=== PATIENT | female | born 1990 | race Caucasian/White ===

== ENCOUNTER → 2017-11-28 | Outpatient (CLI) | payer BC ==
[2017-11-28 14:24] LABS: BASO % 0.5 % (0.0-1.0); EOS # 0.2 10^3/uL (0.0-0.50); HEMATOCRIT 39.6 % (36.0-47.0); HEMOGLOBIN 13.6 g/dl (12.0-15.5); IMMATURE GRANULOCYTE % 0.4 % (0-3.0); LYMPH # 2.4 10^3/uL (1.5-6.5); LYMPH % 32.7 % (24.0-44.0); MEAN CORPUSCULAR HEMOGLOBIN 30.8 pg (27.0-33.0); MEAN CORPUSCULAR HGB CONC 34.3 g/dl (32.0-36.5); MEAN CORPUSCULAR VOLUME 89.6 fl (80.0-96.0); MONO # 0.5 10^3/uL (0.0-0.8); MONO % 6.1 % (0.0-5.0); NEUTROPHILS # 4.3 10^3/uL (1.8-7.7); NEUTROPHILS % 58.3 % (36.0-66.0); PLATELET COUNT, AUTOMATED 284 10^3/uL (150-450); RED BLOOD COUNT 4.42 10^6/uL (4.00-5.40); RED CELL DISTRIBUTION WIDTH 12.3 % (11.5-14.5); WHITE BLOOD COUNT 7.3 10^3/uL (4.0-10.0)
[2017-11-28 16:17] LABS: CHLAMYDIA DNA AMPLIFICATION NEGATIVE (NEGATIVE); GC DNA AMPLIFICATION NEGATIVE (NEGATIVE)
[2017-11-29 10:33] LABS: RUBELLA IgG QUALITATIVE IMMUNE (IMMUNE)
[2017-11-29 10:44] LABS: HBsAg Prenatal NEGATIVE (NEGATIVE)
[2017-11-29 11:04] LABS: HEPATITIS C VIRUS ABY INDEX 0.1 INDEX (<0.8)
[2017-11-29 11:05] LABS: HIV 1&2 SCREEN CENTAUR NEGATIVE (NEGATIVE)
== END ==
LOC: M SMT 08:52
DX: Z34.81 Encounter for supervision of other normal pregnancy, first trimester (principal); Z3A.09 9 weeks gestation of pregnancy
CPT/HCPCS: 86762

== ENCOUNTER → 2018-01-31 | Outpatient (CLI) | payer BC | LOC: M RAD 06:59 | DX: Z36.9 Encounter for antenatal screening, unspecified (principal); Z3A.18 18 weeks gestation of pregnancy | CPT/HCPCS: 76811 ==

== ENCOUNTER → 2018-02-27 | Outpatient (CLI) | payer BC | LOC: M RAD 07:00 | DX: Z34.82 Encounter for supervision of other normal pregnancy, second trimester (principal); Z36.89 Encounter for other specified antenatal screening; Z3A.21 21 weeks gestation of pregnancy | CPT/HCPCS: 76816 ==

== ENCOUNTER → 2018-03-25 | Outpatient (CLI) | payer BC | LOC: M RAD 06:27 | DX: Z36.89 Encounter for other specified antenatal screening (principal); Z3A.26 26 weeks gestation of pregnancy | CPT/HCPCS: 76816 ==

== ENCOUNTER → 2018-04-01 | Outpatient (CLI) | payer BC ==
[2018-04-01 17:48] LABS: BASO % 0.3 % (0.0-1.0); EOS # 0.1 10^3/uL (0.0-0.50); EOS % 1.6 % (0.0-3.0); HEMATOCRIT 34.7 % (36.0-47.0); HEMOGLOBIN 11.7 g/dl (12.0-15.5); IMMATURE GRANULOCYTE % 1.1 % (0-3.0); LYMPH # 2.2 10^3/uL (1.5-6.5); LYMPH % 24.8 % (24.0-44.0); MEAN CORPUSCULAR HEMOGLOBIN 30.2 pg (27.0-33.0); MEAN CORPUSCULAR HGB CONC 33.7 g/dl (32.0-36.5); MEAN CORPUSCULAR VOLUME 89.7 fl (80.0-96.0); MONO # 0.7 10^3/uL (0.0-0.8); MONO % 7.4 % (0.0-5.0); NEUTROPHILS # 5.7 10^3/uL (1.8-7.7); NEUTROPHILS % 64.8 % (36.0-66.0); PLATELET COUNT, AUTOMATED 265 10^3/uL (150-450); RED BLOOD COUNT 3.87 10^6/uL (4.00-5.40); RED CELL DISTRIBUTION WIDTH 12.9 % (11.5-14.5); WHITE BLOOD COUNT 8.8 10^3/uL (4.0-10.0)
[2018-04-01 22:07] LABS: GLUCOSE CHALLENGE TEST 1 HOUR 91 MG/DL (LESS THAN 140)
== END ==
LOC: M SMT 13:44
DX: Z34.82 Encounter for supervision of other normal pregnancy, second trimester (principal)
CPT/HCPCS: 82950

== ENCOUNTER → 2018-05-30 | Outpatient (CLI) | payer BC ==
--- NOTE | 2018-05-30 08:31 | REP ---
Obstetric sonography: History: Size date discrepancy. Third trimester study. Findings: Scanning through the gravid uterus demonstrates a viable single intrauterine gestation in a cephalic lie. motion is observed and heart rate is recorded at 141 beats per minute. An anterior grade 2 placenta is seen without evidence of previa. Amniotic fluid is subjectively normal. Closed cervical length measured transabdominally is 3.8 cm. No extrauterine abnormalities observed. There has been appropriate interval growth. Exam quality was inhibited some degree by crowding and maternal body habitus. No anomaly is seen. cranium, face and profile, left-sided stomach, kidneys and bladder are again seen and are felt to be unremarkable. Biometry chart: BPD 9.3 cm = 37 weeks 4 days Head circumference 33.1 cm = 37 weeks 5 days Abdominal circumference 33.9 cm = 37 weeks 6 days Femur length 7.0 cm = 35 weeks 5 days Humeral length 6.3 cm = 36 weeks 5 days HC/AC ratio normal at 1.0. Cephalic index normal 0.79. Estimated weight 3162 grams, 6 pounds 15 ounces, 93rd percentile for 34 weeks 6 days. IESHA normal 19.3 cm. S/D ratio in the umbilical cord artery by Doppler normal 2.31. Impression: Viable single intrauterine gestation at 37 weeks 1 day by today's composite sonographic criteria. Expected gestational age estimate based on prior sonography is 35 weeks 0 days. LIZETH by prior sonography July 04, 2018. Estimated weight in the 93rd percentile. Electronically Signed by Sourav Mares MD 05/30/2018 10:16 A
== END ==
LOC: M RAD 06:13
PROVIDERS: ATTEND Advanced Practice Midwife
DX: O26.843 Uterine size-date discrepancy, third trimester (principal)

== ENCOUNTER → 2018-06-06 | Outpatient (REF) | payer BC | LOC: M LAB REF 16:52 | PROVIDERS: ATTEND Specialist | DX: Z34.83 Encounter for supervision of other normal pregnancy, third trimester (principal); Z3A.36 36 weeks gestation of pregnancy ==

== ENCOUNTER 2018-07-05 06:18 | Inpatient (IN) | payer BC ==
[~2018-07-05] VITALS: Ht 162.6 cm; Wt 104.2 kg
[2018-07-05] VITALS (32 sets, daily range): BP systolic 86–128; BP diastolic 51–83
[2018-07-05] MEDS ORDERED: PRENCHW PO (06:35)
[2018-07-05] MEDS ORDERED: LACTATED RINGER'S 1000 ML IV STA (07:30)
--- NOTE | 2018-07-05 07:46 | HPEPDOC ---
Obstetrical History & Physical General Date of Admission Jul 05, 2018 at 06:18 History of Present Illness Chief Complaint: Induction of labor Information Provided By: Patient : 1 Care Care: Good Care Dating Final EDC: Jul 01, 2018 EGA at Admission: 40 (+4) Antepartum Course Height (inches): 64 Pre- weight (lbs.): 192 Admission Weight (lbs.): 230 Past Medical History Past Obstetrical History : Past Obstetrical History: [employer] History: No pertinent history Past Medical History Surgical History: [place] teeth Family History Significant Family History: Heart disease, Hypertension, Renal disease Social History Marital Status: Family situation: Spouse/partner home Psychosocial History: No pertinent psych hx * Smoker: non-smoker Alcohol: Denies Drugs: denies Imunizations Tdap status: current Allergies Coded Allergies: Bee Venom (Verified Allergy, Severe, 07/05/18) Medications Scheduled Multivitamins/ ( 19) 1 Chw Chw, 1 TAB PO DAILY Physical Examination Physical Examination GENERAL: Alert and oriented times three. BREAST: . ABDOMEN: Gravid and non-tender to touch. FETUS: Is vertex (VTX) by sterile vaginal examination (SVE), fetus is vertex (VTX) by Alfred. HEART RATE: Regular rate and rhythm. LUNGS: Clear to auscultation (CTA). EXTREMITIES: No edema. No clonus. Deep tendon reflexes (DTRs) + 2. Vital Signs/I&O Vital Signs Date Time Temp Pulse Resp B/P (MAP) Pulse Ox O2 Delivery O2 Flow Rate FiO2 07/05/18 07:23 88 16 116/70 (85) 07/05/18 06:34 97.8 Laboratory Data 24H LABS Laboratory Tests 2 07/05/18 06:28: Serology Scanned Report Hepatitis B Testing Pertinent Laboratoy Data Blood Type: O+ RBC Antibody Screen: Negative HIV: Negative Hepatitis B: Negative Hepatitis C: Negative Rapid Plasma Reagin: Nonreactive Rubella: Immune Chlamydia/Gonorrhea: Negative Group B Streptococcus: Negative Glucose Tolerance Test: 91 Anatomy Ultrasound Ultrasound Date: Jan 31, 2018 Placenta Location: Anterior Normal Anatomy: Yes Placenta Previa: No Estimated Weight (grams): 216 Other Ultrasounds 11/28/17 dating 9w0d 05/30/18 growth 93%, 3162gm Steroid Therapy Steroid Therapy: No Vaginal Examination Dilation: 3 cm Effacement: 50% Station: -2 Cervical Consistency: Soft Cervical Position: Posterior Presentation: Cephalic presentation (confirmed by bedside sono) Assessment Heart Rate (FHR): 145 Variability: Moderate Accelerations: Positive Decelerations: None Tocometer Contractions: Yes Frequency: irregular Strength: palpated as mild Assessment/Plan Assessment Alyssia is a 28-year-old (G)1 para (P)0 at 40+4 weeks by 9-week ultrasound. Presents to Labor and Delivery (L&D) elective induction of labor due to suspected macrosomia. Denies regular UC, LOF or bleeding. Fetus is active. Plan Admit and orient per consult Dr Nevarez Aircraft Engine Technician and consent. Diet: Regular. Group B Streptococcus (GBS) negative. Labs and intravenous (IV) per unit protocol. Counseled on misoprostol, Pitocin and induction of labor (IOL). Lactated Ringers (LR): Bolus 500 mL, then saline lock. Pt plans to labor ad lawson Anticipate normal spontaneous delivery (). C-S as appropriate. Do Sanchez CNM Jul 05, 2018 07:46
[2018-07-05 07:48] LABS: HEMOGLOBIN 13.1 g/dl (12.0-15.5); MEAN CORPUSCULAR HEMOGLOBIN 30.6 pg (27.0-33.0); MEAN CORPUSCULAR HGB CONC 34.5 g/dl (32.0-36.5); MEAN CORPUSCULAR VOLUME 88.8 fl (80.0-96.0); PLATELET COUNT, AUTOMATED 240 10^3/uL (150-450); RED BLOOD COUNT 4.28 10^6/uL (4.00-5.40); WHITE BLOOD COUNT 7.8 10^3/uL (4.0-10.0)
[2018-07-05] MEDS ORDERED: miSOPROStol 50 MCG 1/2 TAB (S0191) PO SCH (08:00)
--- NOTE | 2018-07-05 14:42 | NUR ---
Progress Note Pt has received one dose of misoprostol 50mcg PO. Pt feeling mild discomfort with contractions. No VB/LOF. VSS,normotensive, afebrile SVE: 4cm/75%/-2; cephalic, intact EFM: Cat I [place]: ctxs every 2-5min A/P: Favorable cervix. Reassuring maternal and status. -Start Pitocin. Ayde Nevarez DO FACOG
[2018-07-05] MEDS ORDERED: OXYTOCIN DRIP 30 UNITS in APPROPRIATE DILUENT 1 EA IV SCH (14:45)
[2018-07-05] MEDS ORDERED: OXYTOCIN 30 UNITS IN 0.9% NaCl 500ML IV BAG (J2590) As Ordered ONE (14:46)
[2018-07-05] MEDS: LR 1,000 ML IV SCH ×2 (15:05→17:34)
--- NOTE | 2018-07-05 18:01 | NUR ---
Progress Note Pt not significantly uncomfortable but feeling more frequent uctxs. No VB/LOF. VSS/normotensive, normal HR, afebrile SVE: 5cm/75%/-2, cephalic, intact. EFM: Cat I [place]: ctxs every 2-7min; pit at 10mU/min. A/P: Reassuring maternal and status. -Repeat SVE in 2-4 hours or sooner PRN Ayde Nevarez DO
[2018-07-05] MEDS ORDERED: BUTORPHANOL 2 MG/ML INJ (J0595) IV ONE (19:45)
[2018-07-05] MEDS ORDERED: PROMETHAZINE INJ 25 MG/ML VIAL (J2550) IV ONE (19:45)
[2018-07-05] MEDS ORDERED: FENTANYL 2MCG/ML ROPIVACAINE 0.2% IN 0.9% NACL 100ML IVBAG As Ordered ONE (21:55)
[2018-07-05] MEDS ORDERED: EPIDURAL/PCA KEYS XX PRN (22:36)
[2018-07-05] MEDS ORDERED: EPIDURAL COMMENT XX SCH (22:36)
[2018-07-05] MEDS ORDERED: REFRIGERATOR IV KEYS XX PRN (22:36)
[2018-07-05] MEDS ORDERED: LACTATED RINGER'S 1000 ML IV PRN (22:36)
[2018-07-05] MEDS ORDERED: ePHEDrine SULFATE 25 MG/5 ML(5MG/ML) SYRINGE IV PRN (22:36)
[2018-07-05] MEDS ORDERED: FENTANYL/ROPIVACAINE/NACL BAG 100 ML EPIDURAL SCH (22:36)
[2018-07-05] MEDS ORDERED: diphenhydrAMINE INJ 50MG/ML VIAL (J1200) IV PRN (22:36)
[2018-07-05] MEDS ORDERED: NALOXONE INJ 0.4 MG/1 ML VIAL (J2310) IV PRN (22:36)
[2018-07-05] MEDS ORDERED: ONDANSETRON 4MG/2ML VIAL (J2405) IV PRN (22:36)
--- NOTE | 2018-07-05 23:31 | NUR ---
Progress Note Pt comfortable with epidural. SROM at 1845; clear fluid since ROM. Small amount of bloody show. VSS, normal HR, normotensive, afebrile SVE: 6-7/100%/-1 EFM: Cat I [place]: ctxs every 2-4min; Pit at 2mU/min A/P: Active labor. Reassuring maternal and status. Adequate pain control. -Continue Pitocin. DO Brian
[2018-07-05] MEDS ORDERED: ePHEDrine SULFATE 25 MG/5 ML(5MG/ML) SYRINGE As Ordered ONE (23:57)
[2018-07-06] VITALS (26 sets, daily range): BP systolic 73–119; BP diastolic 37–64
--- NOTE | 2018-07-06 02:04 | NUR ---
Progress Note Pt still comfortable with epidural. Denies any rectovaginal pressure. Reports more bloody show. VSS,normotensive, normal HR, afebrile SVE: 9/c/0 EFM: normal baseline, moderate variability, rare / intermittent variable decel, +accels [place]: ctxs every 3-5 min (not tracing very well); pit at 12mU/min. A/P: Active labor. Normal progression, approaching second stage of labor. Reassuring maternal and status. -Continue Earnest Nevarez, DO
--- NOTE | 2018-07-06 06:36 | NUR ---
Progress Note Pt has been pushing for approximately 1 hour. States she is feeling rectovaginal pressure, but epidural is offering adequate relief. VSS,normotensive,af SVE: c/c/+1 EFM: Cat I [place]: ctxs every 2-5min; Pit at 16mU/min A/P: Second stage of labor. Reassuring maternal and status. -Continue pushing efforts and Pitocin augmentation Ayde Nevarez, DO
[2018-07-06] MEDS ORDERED: BICITRA 30ML SOLN UDC As Ordered ONE (07:39)
[2018-07-06] MEDS ORDERED: ceFAZolin 2 GM/D5W 50 ML IV BAG (J0690 PER 500MG) As Ordered ONE (07:39)
[2018-07-06] MEDS ORDERED: OXYTOCIN INJ 10 UNITS/ML VIAL (J2590) As Ordered ONE ×2 (07:40→08:38)
[2018-07-06] MEDS ORDERED: LIDOCAINE PRES-FREE 2% 10ML AMP As Ordered ONE (07:41)
[2018-07-06] MEDS ORDERED: EPINEPHrine INJ 1 MG/ML 1ML AMP As Ordered ONE (07:42)
--- NOTE | 2018-07-06 07:43 | NUR ---
Progress Note Pt has been pushing for >2 hours. VSS,af,mild tach, normotensive. SVE: c/c/+1. OP w/ caput/molding. Little to no descent with maternal pushing efforts. FHR: Cat II, tachycardia [place]: ctxs every 2-5 min; Pit turned off A/P: Arrest of descent. Cat II FHR -Recommended PLTCS; discussed r/b/a/i. -Informed consent obtained. Ayde Nevarez DO
[2018-07-06] MEDS ORDERED: BICITRA 30ML SOLN UDC PO ONE (08:00)
[2018-07-06] MEDS ORDERED: AZITHROMYCIN INJ 500 MG, VIAL MATE ADAPTER 1 EACH in D5W 250 ML IV ONE (08:00)
[2018-07-06] MEDS ORDERED: MORPHINE PRES-FREE INJ 10 MG/10 ML VIAL (J2274) As Ordered ONE (08:11)
[2018-07-06] MEDS ORDERED: NALOXONE INJ 0.4 MG/1 ML VIAL (J2310) IV PRN ×2 (08:30)
[2018-07-06] MEDS ORDERED: METOCLOPRAMIDE INJ 10MG/2ML VIAL (J2765) IV PRN (08:30)
[2018-07-06] MEDS ORDERED: NALBUPHINE HCL 10 MG/ML AMP (J2300) IV PRN ×2 (08:30→09:30)
[2018-07-06] MEDS ORDERED: diphenhydrAMINE INJ 50MG/ML VIAL (J1200) IV PRN (08:30)
[2018-07-06] MEDS ORDERED: ONDANSETRON 4MG/2ML VIAL (J2405) IV PRN ×3 (08:30→09:30)
[2018-07-06] MEDS ORDERED: dexameTHASONE 4 MG/ML 1ML VIAL (J1100) As Ordered ONE (08:55)
[2018-07-06] MEDS ORDERED: ONDANSETRON 4MG/2ML VIAL (J2405) As Ordered ONE (08:55)
[2018-07-06] MEDS ORDERED: PHENYLephrine HCL 500 MCG/5 ML (100MCG/ML) SYRINGE (J2370) As Ordered ONE (08:55)
[2018-07-06] MEDS ORDERED: OXYTOCIN DRIP 30 UNITS in APPROPRIATE DILUENT 1 EA IV SCH (09:14)
[2018-07-06] MEDS ORDERED: MEASLES,MUMPS,RUBELLA VACCINE INJ (MMR-II) (90707) SC SCH (09:15)
[2018-07-06] MEDS ORDERED: RHOGAM 300 MCG (1500 IU) INJ (J2790) IM SCH (09:15)
[2018-07-06] MEDS ORDERED: PERCOCET 5MG/325MG TAB PO PRN (09:15)
[2018-07-06] MEDS ORDERED: PROMETHAZINE 25 MG TAB PO PRN (09:15)
[2018-07-06] MEDS ORDERED: PERCOCET PO (09:17)
[2018-07-06] MEDS ORDERED: IBUP80TA PO (09:19)
[2018-07-06] MEDS ORDERED: COLA100C5 PO (09:19)
--- NOTE | 2018-07-06 09:24 | NUR ---
Operative Note Date of procedure: 07/06/2018 Procedure: Primary low-transverse section Anesthesia: Epidural Preoperative diagnosis: Arrest of descent, category 2 heart rate tracing Postoperative diagnosis: Same as preoperative diagnosis Indication: Arrest of descent in second stage of labor. Category 2 heart rate tracing during the second stage of labor. Primary surgeon: Carlos A Nevarez D.O., Noni Jenkins Supervisor Dock: Wanda Salas MD (essential for surgical site exposure, control of bleeding) Estimated blood loss:700 ml IV fluids administered: 1100 ml crystalloid, 40U Pitocin Drains: Finley catheter. Urine output: 75 ml data: Apgars 8 and 8. Birthweight 4160g, 9lbs 3oz.. Preoperative/prophylactic antibiotics: Ancef 2 g IV (given within 30 minutes prior to surgical start time). Azithromycin 500mg IV x 1. Intraoperative findings: Occiput posterior position. Normal uterus and bilateral adnexa/ovaries. Specimen(s): none Procedure: The patient was counseled and consented on the risks, benefits, indications and alternatives of the procedure. Informed consent was obtained and placed in the c cordero. She was taken to the operating room with an IV running. She was placed on the operating table. Spinal anesthesia was administered without any difficulty and found to be adequate. She was placed in the dorsal supine position with a leftward tilt. Sequential compression devices were placed on the lower extremities. A Finley catheter was placed under sterile conditions. She was sterilely prepped and draped. A surgical timeout was performed per protocol. Spinal anesthesia was again found to be adequate. Using the 10 blade a Pfannenstiel incision was performed. The 10 blade was used to dissect down to the level of the rectus sheath fascia. The rectus sheath fas mark was incised at the midline, and the fascial incision was extended with Ferreira scissors. Miriam clamps were used to grasp the superior and inferior aspect of the fascial incision and the rectus muscle bellies were dissected off sharply and bluntly. The midline was identified and the rectus muscle bellies were manually . The peritoneum was identified and clamped with hemostats and elevated. The peritoneum was then incised with Metzenbaum scissors. Entry into the intraperitoneal cavity was achieved. The peritoneal opening was extended with manual stretch . There was good visualization of both the bladder and the lower uterine segment. The bladder retractor was placed. The vesicouterine peritoneum was dissected with Metzenbaum scissors and blunt dissection. Bladder retractor was repositioned. A low transverse uterine incision was made with a new 10 blade. The hysterotomy was extended with manual stretch. The amniotic sac was protruding a nd then artificially ruptured. Thick meconium stained amniotic fluid was noted. The baby's head delivered through the hysterotomy with ease. The remainder of the body delivered with ease. The cord was doubly clamped and cut and the baby was handed off to awaiting care. See data above. The placenta was manually removed and noted to be fully intact. The uterus was exteriorized. The intrauterine cavity was cleared of all clot and debris with a laparotomy sponge. The hysterotomy was closed with 0 Vicryl in running, locked fashion. A second imbricating closure was performed over the initial layer closure using 0 Vicryl The hysterotomy was noted to be hemostatic. The posterior cul-de-sac was irrigated and cleared of all clot and debris. The uterus was replaced back into the abdomen. The paracolic gutters were cleared of all clot and debris with damp laparotomy sponges. The hysterotomy is reinspected and noted to be hemostatic. Sponge, needle and instrument counts were correct. The peritoneum was closed with 3-0 Vicryl in running fashion. The rectus muscle bellies were reapproximated with 3-0 Vicryl with a series of interrupted sutures. The rectus muscle bellies were noted to be hemostatic. The fascia was closed with 0 Vicryl in running fashion. Sponge, needle and instrument counts were again correct. The subcutaneous layer was irrigated. Small subcutaneous bleeders were cauterized with Bovie. The subcutaneous layer was reapproximated with 3-0 Vicryl in running fashion. The skin was closed with 3-0 Monocryl in subcuticular fashion. A bandage was placed over the closed incision. The final sponge, instrument and needle count was correct. She tolerated the entire procedure very well. She was transferred to the PACU in good and stable condition. Dr. Carlos A Nevarez D.O., F.[email or web address]
[2018-07-06] MEDS ORDERED: fentaNYL 100 MCG/2 ML INJECTION (J3010) IV PRN (09:30)
[2018-07-06] MEDS ORDERED: KETOROLAC 30 MG/ML VIAL (J1885) IV PRN (09:30)
[2018-07-06] MEDS ORDERED: OXYTOCIN 30 UNITS IN 0.9% NaCl 500ML IV BAG (J2590) As Ordered ONE (09:40)
[2018-07-06] MEDS ORDERED: ePHEDrine SULFATE 25 MG/5 ML(5MG/ML) SYRINGE As Ordered ONE (10:00)
[2018-07-06] MEDS ORDERED: ePHEDrine INJ 50 MG/ML VIAL IV STA (10:00)
[2018-07-06] MEDS ORDERED: KETOROLAC 30 MG/ML VIAL (J1885) As Ordered ONE (10:13)
[2018-07-06] MEDS: LR 1,000 ML IV SCH ×2 (11:00→17:14)
[2018-07-06] MEDS: KETOROLAC 30 MG/ML VIAL (J1885) IV SCH ×2 (16:23→21:16)
[2018-07-06] MEDS: DOCUSATE SODIUM 100 MG CAP PO SCH (21:15)
[2018-07-07] MEDS: LR 1,000 ML IV SCH (01:14)
[2018-07-07 02:09] VITALS: BP 97/52
[2018-07-07] MEDS: KETOROLAC 30 MG/ML VIAL (J1885) IV SCH (04:06)
[2018-07-07 06:04] VITALS: BP 99/56
[2018-07-07 07:09] LABS: HEMATOCRIT 28.3 % (36.0-47.0); HEMOGLOBIN 9.2 g/dl (12.0-15.5); MEAN CORPUSCULAR HEMOGLOBIN 30.1 pg (27.0-33.0); MEAN CORPUSCULAR HGB CONC 32.5 g/dl (32.0-36.5); MEAN CORPUSCULAR VOLUME 92.5 fl (80.0-96.0); PLATELET COUNT, AUTOMATED 177 10^3/uL (150-450); RED BLOOD COUNT 3.06 10^6/uL (4.00-5.40); WHITE BLOOD COUNT 10.5 10^3/uL (4.0-10.0)
--- NOTE | 2018-07-07 07:19 | NUR ---
Postoperative Day 1 Status post primary low transverse section, uncomplicated. Subjective Pain is well controlled. Lochia is decreasing and minimal. Voiding spontaneously. Tolerating a regular diet. Ambulating without any assistance. Denies any subjective fever, chills, nausea, vomiting, headache, visual changes, shortness of breath, chest pain. Breast feeding. Objective Vitals: Normotensive, normal heart rate, afebrile, adequate urine output. Heart: regular, rate, and rhythm. no murmurs/gallops/rubs Lungs: clear to auscultation bilaterally, no wheezes/crackles/rales/ronchi Abd: soft, nontender, nondistended, uterine fundus is 2cm below umbilicus and firm Incision: clean, dry, intact Ext: no significant edema, nontender, negative Serge's bilaterally. Preoperative H/H: 13.1/38.0 Postoperative H/H: 9.2/28.3 Assessment/Plan: Postoperative day 1 status post primary low transverse section. Recovering well. Hemodynamically stable, afebrile, good pain control. -Routine care -Discharge to home tomorrow. -Routine infectious, fever, pain, and bleeding precautions reviewed -Incision/wound care precautions reviewed. Davy Mcrae.O., F.A.C.O.G.
[2018-07-07] MEDS: DOCUSATE SODIUM 100 MG CAP PO SCH ×2 (08:20→20:57)
[2018-07-07] MEDS: PRENATAL VITAMINS CHEWABLE TABLET PO SCH (08:20)
[2018-07-07 10:00] VITALS: BP 103/55
[2018-07-07] MEDS: IBUPROFEN 800 MG TAB PO SCH ×2 (11:44→20:57)
[2018-07-07] MEDS: PERCOCET 5MG/325MG TAB PO PRN (13:43)
[2018-07-07 14:00] VITALS: BP 95/55
[2018-07-07 18:00] VITALS: BP 109/58
[2018-07-07 22:00] VITALS: BP 112/67
[2018-07-08 02:00] VITALS: BP 107/60
[2018-07-08] MEDS: IBUPROFEN 800 MG TAB PO SCH ×2 (04:04→12:06)
[2018-07-08 06:00] VITALS: BP 104/64
--- NOTE | 2018-07-08 07:06 | DS.PDOC ---
Discharge Summary General Date of Admission Jul 05, 2018 at 06:18 Date of Discharge 07/08/2018 Attending Physician: LAURA NEVAREZ DO Discharge Summary PROCEDURES PERFORMED DURING STAY: primary . ADMITTING DIAGNOSES: 1. IUP at 40+ weeks gestation. 2. elective induction of labor DISCHARGE DIAGNOSES: 1. primary section day 2 postoperative. COMPLICATIONS/CHIEF COMPLAINT: Induction. HISTORY OF PRESENT ILLNESS: Patient is a 28-year-old female who presented to L&D for induction of labor. She progressed to fully dilated and pushed for 2 hours without any descent with a Category II FHR tracing. The decision was made with the patient and Dr. Nevarez to proceed to a section. DISCHARGE MEDICATIONS: Please see below. ALLERGIES: Please see below. PHYSICAL EXAMINATION ON DISCHARGE: VITAL SIGNS: Please see below. GENERAL: A+Ox3 RESPIRATORY EXAMINATION: regular rate and rhythm. ABDOMINAL EXAMINATION: Fundus firm at umbilicus. Dressing still applied to site. EXTREMITIES: +1 pitting edema bilateral feet. SKIN: warm, dry, without any unusual rashes. LABORATORY DATA: Please see below. ACTIVITY: As tolerated. DIET: regular DISCHARGE INSTRUCTIONS: 1. Patient to be discharged home. She is to follow-up in the office in 2 weeks and 6 weeks. 2. Education done on dressing removal-removal on day 5 . 3. Education done on mastitis, fever, DVT, pulmonary edema, hemorrhage, i nfection at the incision site, and cleaning of incision. DISCHARGE CONDITION: Stable. Vital Signs/I&Os Vital Signs Date Time Temp Pulse Resp B/P (MAP) Pulse Ox O2 Delivery O2 Flow Rate FiO2 07/08/18 06:00 97.6 75 18 104/64 (77) 100 Room Air Laboratory Data CBC/BMP Item Value Date Time White Blood Count 10.5 10^3/uL H 07/07/18 0657 Red Blood Count 3.06 10^6/uL L 07/07/18 0657 Hemoglobin 9.2 g/dl L 07/07/18 0657 Hematocrit 28.3 % L 07/07/18 0657 Mean Corpuscular Volume 92.5 fl 07/07/18 06 Mean Corpuscular Hemoglobin 30.1 pg 07/07/18 06 Mean Corpuscular Hemoglobin Concent 32.5 g/dl 07/07/18656 Red Cell Distribution Width 14.8 % H 07/07/18656 Platelet Count 177 10^3/uL 07/07/18 0657 Discharge Medications Scheduled Docusate Sodium (Colace) 100 Mg Cap, 1 CAP PO BID Ibuprofen (Ibuprofen) 800 Mg Tab, 800 MG PO TID for pain Multivitamins/ ( ) 1 Chw Chw, 1 TAB PO DAILY, (Reported) Scheduled PRN Oxycodone/Acetaminophen (Percocet 5MG/325MG Tablet) 1 Tab Tab, 1 TAB PO QIDP PRN for pain Allergies Coded Allergies: Bee Venom (Verified Allergy, Severe, 07/05/18) ANDRE BROUSSARD CNM Jul 08, 2018 07:06
[2018-07-08] MEDS: DOCUSATE SODIUM 100 MG CAP PO SCH (08:22)
[2018-07-08] MEDS: PRENATAL VITAMINS CHEWABLE TABLET PO SCH (08:22)
[2018-07-08] MEDS: PERCOCET 5MG/325MG TAB PO PRN (12:05)
[2018-07-09] MEDS ORDERED: ONDANSETRON 4MG/2ML VIAL (J2405) As Ordered ONE (08:20)
[2018-07-09] MEDS ORDERED: OXYTOCIN INJ 10 UNITS/ML VIAL (J2590) As Ordered ONE (08:20)
[2018-07-09] MEDS ORDERED: dexameTHASONE 4 MG/ML 1ML VIAL (J1100) As Ordered ONE (08:20)
== END 2018-07-08 12:20 | disposition home or self-care (01) | DRG 540 ==
LOC: M LDI 06:18 → M OBS 07-06 10:55
PROVIDERS: ADMIT Advanced Practice Midwife; ATTEND Obstetrics & Gynecology
PROC: 3E0P7GC Introduction of Other Therapeutic Substance into Female Reproductive, Via Natural or Artificial Opening (ICD-10-PCS; 2018-07-05)
PROC: 10D00Z1 Extraction of Products of Conception, Low, Open Approach (ICD-10-PCS; principal; 2018-07-06 07:53)
DX: O48.0 Post-term pregnancy (principal); O64.0XX0 Obstructed labor due to incomplete rotation of fetal head, not applicable or unspecified; O36.63X0 Maternal care for excessive fetal growth, third trimester, not applicable or unspecified; Z3A.40 40 weeks gestation of pregnancy; O77.0 Labor and delivery complicated by meconium in amniotic fluid; Z37.0 Single live birth

== ENCOUNTER → 2018-10-09 | Outpatient (REF) | payer BC ==
[~2018-10-09] MED LIST: COLA100C5 PO; IBUP80TA PO; PERCOCET PO; PRENCHW PO
== END ==
LOC: M LAB REF 19:21
PROVIDERS: ATTEND Obstetrics & Gynecology
DX: Z12.4 Encounter for screening for malignant neoplasm of cervix (principal)

== ENCOUNTER → 2019-11-23 | Outpatient (CLI) | payer BC ==
[2019-11-23 09:45] LABS: ALBUMIN 3.9 GM/DL (3.2-5.2); ALT/SGPT 32 U/L (12-78); BILIRUBIN,TOTAL 0.5 MG/DL (0.2-1.0); BLOOD UREA NITROGEN 12 MG/DL (7-18); CALCIUM LEVEL 8.7 MG/DL (8.5-10.1); CARBON DIOXIDE LEVEL 27 MEQ/L (21-32); CHLORIDE LEVEL 105 MEQ/L (98-107); CHOLESTEROL LEVEL 169 MG/DL (<200); CHOLESTEROL RISK RATIO 4.567 (<5); CREATININE FOR GFR 0.64 MG/DL (0.55-1.30); FREE T4 1.04 NG/DL (0.76-1.46); GLOMERULAR FILTRATION RATE > 60.0 (>60); GLUCOSE, FASTING 88 MG/DL (70-100); HDL CHOLESTEROL 37 MG/DL (>40); LDL CHOLESTEROL 99 MG/DL (<100); NON-HDL-C 132 MG/DL; POTASSIUM SERUM 4.7 MEQ/L (3.5-5.1); SODIUM LEVEL 139 MEQ/L (136-145); TOTAL PROTEIN 7.4 GM/DL (6.4-8.2); TRIGLYCERIDES LEVEL 163 MG/DL (<150)
[2019-11-23 10:10] LABS: HEMOGLOBIN A1c 5.4 %
== END ==
LOC: M LAB 08:31
PROVIDERS: ATTEND Physician Assistant
DX: E66.8 Other obesity (principal)

== ENCOUNTER → 2020-04-26 | Outpatient (CLI) | payer BC ==
--- NOTE | 2020-04-26 08:40 | REP ---
INDICATION: UPPER ABD PAIN UNSPECIFIED COMPARISON: None. TECHNIQUE: Real time soler scale ultrasound examination using curved array transducer. FINDINGS: Liver is normal in contour, size, and echogenicity without focal hepatic lesions identified. Pancreas is incompletely evaluated due to interposed bowel gas. The gallbladder demonstrates multiple mobile gallstones without wall thickening, or pericholecystic fluid. No biliary ductal dilatation is appreciated and the common bile duct measures 4.0 mm diameter. Right kidney is normal in reniform shape without hydronephrosis and measures 10.6 x 5.2 x 4.3 cm. No ascites in the visualized right upper quadrant. IMPRESSION: Cholelithiasis. Otherwise normal right upper quadrant ultrasound. <Electronically signed by Tim Dougherty > 04/26/20 [id number]
== END ==
LOC: M RAD 06:31
PROVIDERS: ATTEND Physician Assistant
DX: R10.10 Upper abdominal pain, unspecified (principal); K80.20 Calculus of gallbladder without cholecystitis without obstruction

== ENCOUNTER → 2020-06-02 | Outpatient (CLI) | payer BC ==
[2020-06-02 09:28] LABS: ALBUMIN 3.7 GM/DL (3.2-5.2); ALT/SGPT 42 U/L (12-78); BILIRUBIN,TOTAL 0.4 MG/DL (0.2-1.0); BLOOD UREA NITROGEN 8 MG/DL (7-18); CALCIUM LEVEL 8.9 MG/DL (8.5-10.1); CARBON DIOXIDE LEVEL 27 MEQ/L (21-32); CHLORIDE LEVEL 106 MEQ/L (98-107); CREATININE FOR GFR 0.74 MG/DL (0.55-1.30); GLOMERULAR FILTRATION RATE > 60.0 (>60); GLUCOSE, FASTING 92 MG/DL (70-100); POTASSIUM SERUM 4.3 MEQ/L (3.5-5.1); SODIUM LEVEL 140 MEQ/L (136-145); TOTAL PROTEIN 7.2 GM/DL (6.4-8.2)
[2020-06-02 09:53] LABS: THYROGLOBULIN ANTIBODY 21.7 U/ML (<60.0)
== END ==
LOC: M LAB 08:26
PROVIDERS: ATTEND Family Medicine
DX: Z13.29 Encounter for screening for other suspected endocrine disorder (principal); E04.9 Nontoxic goiter, unspecified

== ENCOUNTER → 2020-06-30 | Outpatient (CLI) | payer BC ==
[~2020-06-30] MED LIST changes: +TRI-TAB PO
== END ==
LOC: M LABSMTC 09:40
PROVIDERS: ATTEND Anesthesiology
DX: Z01.812 Encounter for preprocedural laboratory examination (principal); Z20.822 Contact with and (suspected) exposure to COVID-19

== ENCOUNTER 2020-07-05 05:59 | Day surgery (SDC) | payer BC ==
[~2020-07-05] VITALS: Ht 162.6 cm; Wt 87.3 kg
[2020-07-05] MEDS ORDERED: LR 1,000 ML IV ONE (06:00)
[2020-07-05] MEDS ORDERED: ceFAZolin SOD 2 GM in IV 1 EA IV ONE (06:00)
[2020-07-05] MEDS ORDERED: BUPIVACAINE/EPIN 0.25% 30 ML VIAL As Ordered ONE (07:11)
[2020-07-05] MEDS ORDERED: CONRAY-60 60% 50ML VIAL (Q9961) As Ordered ONE (07:11)
[2020-07-05] MEDS ORDERED: KETOROLAC 60MG 2ML VIAL As Ordered ONE (07:12)
[2020-07-05] MEDS ORDERED: LIDOCAINE 2% 100MG/5ML SDV (FOR ANES.) As Ordered ONE (07:12)
[2020-07-05] MEDS ORDERED: ACETAMINOPHEN 1000MG 100ML IV BTL (OFIRMEV) (J0131 PER 10MG) As Ordered ONE (07:12)
[2020-07-05] MEDS ORDERED: ROCURONIUM BROMIDE 50 MG/5 ML VIAL As Ordered ONE (07:12)
[2020-07-05] MEDS ORDERED: dexameTHASONE 4 MG/ML 1ML VIAL (J1100 PER 1MG) As Ordered ONE (07:12)
[2020-07-05] MEDS ORDERED: MIDAZOLAM INJ 2MG/2ML VIAL (J2250 PER 1MG) As Ordered ONE (07:12)
[2020-07-05] MEDS ORDERED: ONDANSETRON 4MG/2ML VIAL As Ordered ONE (07:12)
[2020-07-05] MEDS ORDERED: propofoL 200 MG/20 ML VIAL As Ordered ONE ×2 (07:12→08:31)
[2020-07-05] MEDS ORDERED: SUGAMMADEX SODIUM 500 MG/5 ML VIAL (BRIDION) As Ordered ONE (07:12)
[2020-07-05] MEDS ORDERED: fentaNYL 100 MCG/2 ML INJECTION (J3010) As Ordered ONE (07:13)
[2020-07-05] MEDS ORDERED: LIDOCAINE 5% OINT 30 GM As Ordered ONE (07:20)
[2020-07-05] MEDS ORDERED: fentaNYL 100 MCG/2 ML INJECTION (J3010) IV PRN (09:15)
[2020-07-05] MEDS ORDERED: oxyCODONE 5MG TAB PO PRN (09:15)
[2020-07-05] MEDS ORDERED: LR 1,000 ML IV SCH ×2 (09:15)
[2020-07-05] MEDS ORDERED: MEPERIDINE INJ 25 MG/ML VIAL (J2175) IV PRN (09:15)
[2020-07-05] MEDS ORDERED: PERCOCET 5MG/325MG TAB PO PRN (09:15)
[2020-07-05] MEDS ORDERED: ONDANSETRON 4MG/2ML VIAL IV PRN (09:15)
[2020-07-05] MEDS ORDERED: METOCLOPRAMIDE INJ 10MG/2ML VIAL (J2765 PER 1) IV PRN (09:15)
[2020-07-05 11:45] VITALS: BP 110/72
[2020-07-05] MEDS ORDERED: KETOROLAC 30 MG/ML 1ML VIAL IV SCH (14:00)
--- NOTE | 2020-07-18 08:02 | RO ---
OPERATIVE NOTE DATE OF OPERATION: 07/05/2020 PREOPERATIVE DIAGNOSIS: Symptomatic gallstone. POSTOPERATIVE DIAGNOSIS: Symptomatic gallstone. PROCEDURE: Laparoscopic cholecystectomy. SURGEON: Melchor Bello MD OPERATIONS PLANNER: ANESTHESIA: General endotracheal anesthesia. EBL: Minimal. FLUIDS: Crystalloid. DESCRIPTION OF PROCEDURE: The patient was taken to the operating room, was given general anesthesia. After adequate anesthesia and preoperative antibiotics were given the patient was prepped and draped in usual sterile fashion. A supraumbilical incision was made with skin knife. Blunt dissection was carried down to fascia. Fascia was entered with Veress needle, insufflated to 15 mm pressure and dilating 10 mm trocar was placed. Epigastric and two lateral trocars were placed and the gallbladder was seen, grasped, retracted superiorly and then the neck of the gallbladder was cleared of peritoneum first laterally and then anteriorly and then medially. The cystic artery was well visualized. Window behind the neck of the gallbladder between the cystic artery and cystic duct was created and then behind the cystic artery as well. Once the window was created and the cystic duct was well visualized the cystic artery was clipped on the gallbladder side and transected. The neck of the gallbladder was further able to be mobilized at this time with pulling out this laterally and the cystic duct was then clipped proximally, distally and transected. The gallbladder was removed from the gallbladder bed using electrocautery, placed in an Endo Catch bag, brought out through the umbilicus. Right upper quadrant was copiously irrigated until clear. All trocars were removed under direct visualization. #0 Vicryl was used to close the fascia at the umbilicus. All incisions were closed with 4-0 Vicryl. Steri-Strips and dry, sterile dressing was applied. The patient was awakened, extubated and brought to recovery room awake, alert and hemodynamically stable. Sponge and needle counts correct x2.
== END 2020-07-05 11:50 | disposition home or self-care (01) ==
LOC: M SDC 05:59
PROVIDERS: ATTEND Surgery
DX: K80.10 Calculus of gallbladder with chronic cholecystitis without obstruction (principal); E03.9 Hypothyroidism, unspecified; Z79.899 Other long term (current) drug therapy; Z91.030 Bee allergy status
CPT/HCPCS: 47562; 81025; 88304; J0131; J1100; J1885; J2250; J2405; J3010

== ENCOUNTER → 2020-07-11 | Outpatient (CLI) | payer BC ==
--- NOTE | 2020-07-12 15:53 | REP ---
INDICATION: GOITER COMPARISON: Comparison sonography of the thyroid 15 June 2020 showed a 4.7 cm solid nodule in the inferomedial lower pole left lobe. Radionuclide scan recommended.. TECHNIQUE/RADIOTRACER AND DOSE: 356.0 uCi of Iodine-123 sodium iodide is ingested and functional thyroid images and thyroid uptake values are acquired. FINDINGS: 24 hour uptake value is slightly low at 19.4% (25-35%). Functional images demonstrate warm isointensity uptake in the rounded nodule in the lower pole of the left lobe consisting with a functioning thyroid nodule. The remainder of the gland shows homogeneous uptake. No cold nodule is seen. IMPRESSION: Large function inguinal benign-appearing nodule lower pole left lobe of the thyroid. Twenty-four uptake values slightly low 19.4%. <Electronically signed by Manolo Mares > 07/12/20 [id number]
== END ==
LOC: M RAD 13:41
PROVIDERS: ATTEND Family Medicine
DX: E04.1 Nontoxic single thyroid nodule (principal)
CPT/HCPCS: 78012; A9516

== ENCOUNTER → 2020-07-27 | Outpatient (REF) | payer BC | LOC: M LAB REF 16:58 | PROVIDERS: ATTEND Internal Medicine Endocrinology, Diabetes & Metabolism | DX: E04.1 Nontoxic single thyroid nodule (principal) ==

== ENCOUNTER → 2020-12-22 | Outpatient (REF) | payer BC | LOC: M SFHCWAGY 11:01 | PROVIDERS: ATTEND Nurse Practitioner Women's Health | DX: Z12.4 Encounter for screening for malignant neoplasm of cervix (principal) | CPT/HCPCS: 87624; G0123 ==

== ENCOUNTER → 2021-07-03 | Outpatient (CLI) | payer BC ==
[2021-07-03 10:49] LABS: BASO % 0.5 % (0.0-1.0); EOS # 0.2 10^3/uL (0.0-0.5); EOS % 3.6 % (0.0-3.0); HEMATOCRIT 42.7 % (36.0-47.0); HEMOGLOBIN 14.4 g/dl (12.0-15.5); LYMPH # 2.7 10^3/uL (1.5-5.0); LYMPH % 45.8 % (24.0-44.0); MEAN CORPUSCULAR HEMOGLOBIN 30.6 pg (27.0-33.0); MEAN CORPUSCULAR HGB CONC 33.7 g/dl (32.0-36.5); MEAN CORPUSCULAR VOLUME 90.7 fl (80.0-96.0); MONO # 0.3 10^3/uL (0.0-0.8); MONO % 5.9 % (2.0-8.0); NEUTROPHILS # 2.5 10^3/uL (1.5-8.5); PLATELET COUNT, AUTOMATED 286 10^3/uL (150-450); RED BLOOD COUNT 4.71 10^6/uL (4.00-5.40); WHITE BLOOD COUNT 5.8 10^3/uL (4.0-10.0)
[2021-07-03 12:05] LABS: ALBUMIN 3.7 GM/DL (3.2-5.2); ALT/SGPT 19 U/L (12-78); BILIRUBIN,TOTAL 0.5 MG/DL (0.2-1.0); BLOOD UREA NITROGEN 11 MG/DL (7-18); CARBON DIOXIDE LEVEL 26 MEQ/L (21-32); CHLORIDE LEVEL 105 MEQ/L (98-107); CREATININE FOR GFR 0.66 MG/DL (0.55-1.30); FREE T4 1.13 NG/DL (0.76-1.46); GLOMERULAR FILTRATION RATE > 60.0 (>60); GLUCOSE, FASTING 85 MG/DL (70-100); POTASSIUM SERUM 4.3 MEQ/L (3.5-5.1); SODIUM LEVEL 139 MEQ/L (136-145); THYROID STIMULATING HORMONE 0.608 uIU/ML (0.358-3.740); TOTAL PROTEIN 7.1 GM/DL (6.4-8.2)
== END ==
LOC: M PLALAB 09:13
PROVIDERS: ATTEND Family Medicine
DX: E06.3 Autoimmune thyroiditis (principal)

== ENCOUNTER → 2021-12-26 | Outpatient (REF) | payer BC | LOC: M LAB REF 17:33 | PROVIDERS: ATTEND Family Medicine | DX: J02.9 Acute pharyngitis, unspecified (principal) ==

== ENCOUNTER → 2022-02-01 | Outpatient (CLI) | payer BC ==
[2022-02-01 11:58] LABS: HEMATOCRIT 37.9 % (36.0-47.0); HEMOGLOBIN 12.9 g/dl (12.0-15.5); MEAN CORPUSCULAR HEMOGLOBIN 31.2 pg (27.0-33.0); MEAN CORPUSCULAR VOLUME 91.5 fl (80.0-96.0); PLATELET COUNT, AUTOMATED 229 10^3/uL (150-450); RED BLOOD COUNT 4.14 10^6/uL (4.00-5.40)
[2022-02-01 13:49] LABS: HIV 1&2 SCREEN CENTAUR NEGATIVE (NEGATIVE)
[2022-02-01 14:16] LABS: GC DNA AMPLIFICATION NEGATIVE (NEGATIVE)
== END ==
LOC: M PLALAB 08:51
PROVIDERS: ATTEND Obstetrics & Gynecology
DX: Z34.91 Encounter for supervision of normal pregnancy, unspecified, first trimester (principal)

== ENCOUNTER → 2022-04-02 | Outpatient (CLI) | payer BC | LOC: M WHC 08:54 | PROVIDERS: ATTEND Obstetrics & Gynecology | DX: Z34.92 Encounter for supervision of normal pregnancy, unspecified, second trimester (principal); Z3A.19 19 weeks gestation of pregnancy ==

== ENCOUNTER → 2022-04-23 | Outpatient (CLI) | payer BC | LOC: M WHC 08:57 | PROVIDERS: ATTEND Advanced Practice Midwife | DX: Z34.92 Encounter for supervision of normal pregnancy, unspecified, second trimester (principal); Z3A.23 23 weeks gestation of pregnancy ==

== ENCOUNTER → 2022-05-29 | Outpatient (CLI) | payer BC ==
[2022-05-29 14:34] LABS: HEMATOCRIT 34.1 % (36.0-47.0); HEMOGLOBIN 11.2 g/dl (12.0-15.5); MEAN CORPUSCULAR HEMOGLOBIN 30.9 pg (27.0-33.0); MEAN CORPUSCULAR HGB CONC 32.8 g/dl (32.0-36.5); MEAN CORPUSCULAR VOLUME 93.9 fl (80.0-96.0); PLATELET COUNT, AUTOMATED 209 10^3/uL (150-450); RED BLOOD COUNT 3.63 10^6/uL (4.00-5.40); WHITE BLOOD COUNT 7.4 10^3/uL (4.0-10.0)
[2022-05-29 15:43] LABS: GC DNA AMPLIFICATION NEGATIVE (NEGATIVE)
== END ==
LOC: M PLALAB 08:49
PROVIDERS: ATTEND Obstetrics & Gynecology
DX: Z34.92 Encounter for supervision of normal pregnancy, unspecified, second trimester (principal); Z3A.00 Weeks of gestation of pregnancy not specified

== ENCOUNTER → 2022-07-18 | Outpatient (CLI) | payer OTHER | LOC: M PLALAB 14:05 | PROVIDERS: ATTEND Family Medicine | DX: M79.662 Pain in left lower leg (principal) ==

== ENCOUNTER → 2022-07-19 | Outpatient (CLI) | payer OTHER | LOC: M RAD 12:29 | PROVIDERS: ATTEND Family Medicine | DX: M25.562 Pain in left knee (principal); M79.662 Pain in left lower leg ==

== ENCOUNTER → 2022-07-23 | Outpatient (REF) | payer OTHER | LOC: M SFHCWAGY 17:21 | PROVIDERS: ATTEND Advanced Practice Midwife | DX: Z34.93 Encounter for supervision of normal pregnancy, unspecified, third trimester (principal) ==

== ENCOUNTER → 2022-08-08 | Outpatient (CLI) | payer OTHER ==
[~2022-08-08] MED LIST changes: +MULTTAB20 PO
== END ==
LOC: M WHC 14:13
PROVIDERS: ATTEND Obstetrics & Gynecology
DX: O09.299 Supervision of pregnancy with other poor reproductive or obstetric history, unspecified trimester (principal); Z3A.38 38 weeks gestation of pregnancy

== ENCOUNTER → 2022-08-13 | Outpatient (CLI) | payer OTHER | LOC: M LABSMTC 07:44 | PROVIDERS: ATTEND Anesthesiology | DX: Z01.812 Encounter for preprocedural laboratory examination (principal) ==

== ENCOUNTER 2022-08-16 05:23 | Inpatient (IN) | payer OTHER ==
[~2022-08-16] VITALS: Ht 162.6 cm; Wt 93.9 kg
[2022-08-16] VITALS (9 sets, daily range): BP systolic 96–123; BP diastolic 55–80
[2022-08-16] MEDS ORDERED: LACTATED RINGER'S 1000 ML IV ONE (05:30)
[2022-08-16] MEDS ORDERED: BICITRA 30ML SOLN UDC PO ONE ×2 (05:30→05:40)
[2022-08-16] MEDS ORDERED: LR 1,000 ML IV SCH ×2 (05:30→05:40)
[2022-08-16] MEDS ORDERED: ceFAZolin SOD 2 GM in IV 1 EA IV ONE ×2 (05:30→05:40)
[2022-08-16] MEDS ORDERED: HOME MED LIST COMPLETE! XX SCH (05:35)
[2022-08-16] MEDS ORDERED: LACTATED RINGER'S 1000 ML IV STA (05:37)
[2022-08-16 06:36] LABS: HEMATOCRIT 37.5 % (36.0-47.0); HEMOGLOBIN 12.9 g/dl (12.0-15.5); MEAN CORPUSCULAR HEMOGLOBIN 30.4 pg (27.0-33.0); MEAN CORPUSCULAR HGB CONC 34.4 g/dl (32.0-36.5); MEAN CORPUSCULAR VOLUME 88.4 fl (80.0-96.0); PLATELET COUNT, AUTOMATED 245 10^3/uL (150-450); RED BLOOD COUNT 4.24 10^6/uL (4.00-5.40); WHITE BLOOD COUNT 7.4 10^3/uL (4.0-10.0)
[2022-08-16] MEDS ORDERED: OXYTOCIN INJ 10UNITS/ML 1ML VIAL As Ordered ONE ×3 (07:23→08:41)
[2022-08-16] MEDS ORDERED: KETOROLAC 60MG 2ML VIAL As Ordered ONE (07:23)
[2022-08-16] MEDS ORDERED: MORPHINE PRES-FREE INJ 10 MG/10 ML VIAL As Ordered ONE (07:24)
[2022-08-16] MEDS ORDERED: ONDANSETRON 4MG 2ML VIAL As Ordered ONE (08:31)
[2022-08-16] MEDS ORDERED: PHENYLephrine 500MCG 5ML (100MCG/ML) SYRINGE As Ordered ONE (08:52)
[2022-08-16] MEDS ORDERED: MORPHINE 2 MG/ML 1ML VIAL IV PRN (09:00)
[2022-08-16] MEDS ORDERED: RHOGAM 300MCG (1500IU) INJ IM SCH (09:00)
[2022-08-16] MEDS ORDERED: OXYTOCIN DRIP 30 UNITS in IV 1 EA IV SCH (09:00)
[2022-08-16] MEDS: DOCUSATE SODIUM 100MG CAPSULE PO SCH ×2 (09:00→20:27)
[2022-08-16] MEDS ORDERED: ACETAMINOPHEN 500 MG TAB PO PRN (09:00)
[2022-08-16] MEDS: PRENATAL VITAMINS CHEWABLE TABLET PO SCH (09:00)
[2022-08-16] MEDS ORDERED: ONDANSETRON 4MG 2ML VIAL IV PRN ×2 (09:00→11:00)
[2022-08-16] MEDS ORDERED: PERCOCET 5MG/325MG TAB PO PRN (09:00)
[2022-08-16] MEDS ORDERED: IBUP80TA PO (09:07)
[2022-08-16] MEDS ORDERED: PERCOCET PO (09:07)
[2022-08-16] MEDS ORDERED: COLA100C5 PO (09:07)
[2022-08-16] MEDS: LR 1,000 ML IV SCH ×2 (10:25→17:00)
[2022-08-16] MEDS ORDERED: HYDROMORPHONE HCL 0.5 MG/ 0.5 ML SYRINGE IV PRN (11:00)
[2022-08-16] MEDS ORDERED: fentaNYL 100 MCG/2 ML INJECTION IV PRN (11:00)
[2022-08-16] MEDS ORDERED: oxyCODONE 5MG TAB PO PRN (11:00)
[2022-08-16] MEDS ORDERED: **NOTE PATIENT COMMENT** MISC XX SCH (11:00)
[2022-08-16] MEDS ORDERED: METOCLOPRAMIDE INJ 10MG/2ML VIAL IV PRN (11:00)
[2022-08-16] MEDS ORDERED: MEPERIDINE 25 MG/ML 1ML VIAL IV PRN (11:00)
[2022-08-16] MEDS: SLF 3 ML SYR IV SCH ×2 (11:00→19:00)
[2022-08-16] MEDS ORDERED: NALOXONE INJ 0.4MG/1ML VIAL IV PRN ×2 (11:00)
[2022-08-16] MEDS ORDERED: diphenhydrAMINE 50MG/ML VIAL IV PRN (11:00)
[2022-08-16] MEDS: KETOROLAC 30 MG/ML 1ML VIAL IV SCH ×2 (15:17→20:28)
[2022-08-16] MEDS: PERCOCET 5MG/325MG TAB PO PRN (18:03)
[2022-08-16] MEDS: SIMETHICONE 80MG CHEW TAB PO PRN (18:03)
[2022-08-17 02:00] VITALS: BP 92/52
[2022-08-17] MEDS: KETOROLAC 30 MG/ML 1ML VIAL IV SCH (02:16)
[2022-08-17 05:41] VITALS: BP 91/50
[2022-08-17 07:50] LABS: HEMATOCRIT 30.2 % (36.0-47.0); MEAN CORPUSCULAR HEMOGLOBIN 30.5 pg (27.0-33.0); MEAN CORPUSCULAR HGB CONC 33.1 g/dl (32.0-36.5); MEAN CORPUSCULAR VOLUME 92.1 fl (80.0-96.0); PLATELET COUNT, AUTOMATED 188 10^3/uL (150-450); RED BLOOD COUNT 3.28 10^6/uL (4.00-5.40); WHITE BLOOD COUNT 7.6 10^3/uL (4.0-10.0)
[2022-08-17] MEDS: DOCUSATE SODIUM 100MG CAPSULE PO SCH ×2 (08:19→21:06)
[2022-08-17] MEDS: PRENATAL VITAMINS CHEWABLE TABLET PO SCH (08:20)
[2022-08-17] MEDS: PERCOCET 5MG/325MG TAB PO PRN ×2 (08:22→15:56)
[2022-08-17] MEDS: SIMETHICONE 80MG CHEW TAB PO PRN ×2 (08:22→15:55)
[2022-08-17 10:00] VITALS: BP 104/59
[2022-08-17] MEDS: IBUPROFEN 800 MG TAB PO SCH ×2 (11:15→18:57)
[2022-08-17 14:00] VITALS: BP 101/55
[2022-08-17 17:56] VITALS: BP 100/58
[2022-08-17 22:00] VITALS: BP 103/60
[2022-08-18 02:00] VITALS: BP 115/75
[2022-08-18] MEDS: IBUPROFEN 800 MG TAB PO SCH (03:03)
[2022-08-18 06:00] VITALS: BP 101/58
[2022-08-18] MEDS ORDERED: MEASLES,MUMPS,RUBELLA VACCINE INJ (MMR-II) SC.IMMUN ONE (09:00)
[2022-08-18 10:00] VITALS: BP 116/63
[2022-08-18] MEDS: SIMETHICONE 80MG CHEW TAB PO PRN (10:20)
[2022-08-18] MEDS: DOCUSATE SODIUM 100MG CAPSULE PO SCH (10:20)
[2022-08-18] MEDS: PRENATAL VITAMINS CHEWABLE TABLET PO SCH (10:21)
[2022-08-18] MEDS: PERCOCET 5MG/325MG TAB PO PRN (12:47)
== END 2022-08-18 13:10 | disposition home or self-care (01) | DRG 788 ==
LOC: M LDI 05:23 → M OBS 10:36
PROVIDERS: ADMIT Obstetrics & Gynecology; ATTEND Obstetrics & Gynecology
PROC: 10D00Z1 Extraction of Products of Conception, Low, Open Approach (ICD-10-PCS; principal; 2022-08-16 07:30)
DX: O34.211 Maternal care for low transverse scar from previous cesarean delivery (principal); Z3A.39 39 weeks gestation of pregnancy; Z37.0 Single live birth

== ENCOUNTER → 2023-04-30 | Outpatient (REF) | payer OTHER, MEDICARE | LOC: M LAB REF 17:13 | PROVIDERS: ATTEND Family Medicine | DX: R82.90 Unspecified abnormal findings in urine (principal) ==

== ENCOUNTER → 2023-07-15 | Outpatient (CLI) | payer OTHER ==
[2023-07-15 10:01] LABS: BASO % 0.6 % (0.0-1.0); EOS # 0.1 10^3/uL (0.0-0.5); EOS % 1.2 % (0.0-3.0); HEMOGLOBIN 14.5 g/dl (12.0-15.5); LYMPH # 2.6 10^3/uL (1.5-5.0); LYMPH % 39.6 % (24.0-44.0); MEAN CORPUSCULAR HEMOGLOBIN 30.5 pg (27.0-33.0); MEAN CORPUSCULAR VOLUME 92.6 fl (80.0-96.0); MONO # 0.3 10^3/uL (0.0-0.8); MONO % 5.1 % (2.0-8.0); NEUTROPHILS # 3.5 10^3/uL (1.5-8.5); NEUTROPHILS % 53.3 % (36.0-66.0); PLATELET COUNT, AUTOMATED 278 10^3/uL (150-450); RED BLOOD COUNT 4.75 10^6/uL (4.00-5.40); WHITE BLOOD COUNT 6.6 10^3/uL (4.0-10.0)
[2023-07-15 10:36] LABS: ALBUMIN 3.9 G/DL (3.2-5.2); ALKALINE PHOSPHATASE 65 U/L (46-116); ALT/SGPT 15 U/L (7.0-40); AST/SGOT < 8 U/L (<34); BILIRUBIN,TOTAL 0.6 MG/DL (0.3-1.2); BLOOD UREA NITROGEN 11 MG/DL (9-23); CALCIUM LEVEL 8.6 MG/DL (8.5-10.1); CARBON DIOXIDE LEVEL 28 MMOL/L (20-31); CHLORIDE LEVEL 107 MMOL/L (98-107); CHOLESTEROL LEVEL 133 MG/DL (<200); CHOLESTEROL RISK RATIO 2.77 (<5); CREATININE FOR GFR 0.58 MG/DL (0.55-1.30); GLOMERULAR FILTRATION RATE > 60.0 (>60); GLUCOSE, FASTING 86 MG/DL (60-100); HDL CHOLESTEROL 47.9 MG/DL (>40); LDL CHOLESTEROL 71.1 MG/DL (<100); NON-HDL-C 85.1 MG/DL; POTASSIUM SERUM 4.5 MMOL/L (3.5-5.1); SODIUM LEVEL 139 MMOL/L (136-145); TOTAL PROTEIN 6.9 G/DL (5.7-8.2); TRIGLYCERIDES LEVEL 70 MG/DL (<150)
[2023-07-15 10:38] LABS: FREE T4 1.18 NG/DL (0.89-1.76); THYROID STIMULATING HORMONE 0.672 uIU/ML (0.55-4.78)
== END ==
LOC: M PLALAB 07:39
PROVIDERS: ATTEND Family Medicine
DX: Z13.29 Encounter for screening for other suspected endocrine disorder (principal); Z13.0 Encounter for screening for diseases of the blood and blood-forming organs and certain disorders involving the immune mechanism; Z13.220 Encounter for screening for lipoid disorders

== ENCOUNTER → 2023-07-31 | Outpatient (REF) | payer OTHER | LOC: M LAB REF 17:01 | PROVIDERS: ATTEND Family Medicine | DX: J02.9 Acute pharyngitis, unspecified (principal) ==

== ENCOUNTER → 2024-01-06 | Outpatient (REF) | payer OTHER, MEDICARE ==
[2024-01-08 16:03] LABS: HPV APTIMA Not Detected (Not Detected)
== END ==
LOC: M SFHCWAGY 18:00
PROVIDERS: ATTEND Obstetrics & Gynecology
DX: Z12.4 Encounter for screening for malignant neoplasm of cervix (principal)
CPT/HCPCS: 87624; G0123

== ENCOUNTER → 2024-07-27 | Outpatient (CLI) | payer OTHER ==
[2024-07-27 10:58] LABS: BASO % 0.6 % (0.0-1.0); EOS # 0.1 10^3/uL (0.0-0.5); EOS % 0.8 % (0.0-3.0); HEMATOCRIT 42.5 % (36.0-47.0); LYMPH # 2.5 10^3/uL (1.5-5.0); LYMPH % 34.4 % (24.0-44.0); MEAN CORPUSCULAR HEMOGLOBIN 29.5 pg (27.0-33.0); MEAN CORPUSCULAR HGB CONC 32.9 g/dl (32.0-36.5); MEAN CORPUSCULAR VOLUME 89.7 fl (80.0-96.0); MONO # 0.5 10^3/uL (0.0-0.8); MONO % 6.5 % (2.0-8.0); NEUTROPHILS # 4.2 10^3/uL (1.5-8.5); NEUTROPHILS % 57.4 % (36.0-66.0); PLATELET COUNT, AUTOMATED 350 10^3/uL (150-450); RED BLOOD COUNT 4.74 10^6/uL (4.00-5.40); WHITE BLOOD COUNT 7.3 10^3/uL (4.0-10.0)
[2024-07-27 11:05] LABS: ALBUMIN 3.6 G/DL (3.2-5.2); ALKALINE PHOSPHATASE 50 U/L (35-104); ALT/SGPT 28 U/L (7.0-40); AST/SGOT 10 U/L (<34); BILIRUBIN,TOTAL 0.8 MG/DL (0.3-1.2); BLOOD UREA NITROGEN 9 MG/DL (9-23); CALCIUM LEVEL 9.1 MG/DL (8.5-10.1); CARBON DIOXIDE LEVEL 27 MMOL/L (20-31); CHLORIDE LEVEL 107 MMOL/L (98-107); CHOLESTEROL LEVEL 144 MG/DL (<200); CREATININE FOR GFR 0.66 MG/DL (0.55-1.30); GLOMERULAR FILTRATION RATE > 60.0 (>60); GLUCOSE, FASTING 88 MG/DL (60-100); HDL CHOLESTEROL 47.9 MG/DL (>40); LDL CHOLESTEROL 69.1 MG/DL (<100); NON-HDL-C 96.1 MG/DL; POTASSIUM SERUM 4.9 MMOL/L (3.5-5.1); SODIUM LEVEL 141 MMOL/L (136-145); TOTAL PROTEIN 7.1 G/DL (5.7-8.2); TRIGLYCERIDES LEVEL 135 MG/DL (<150)
== END ==
LOC: M PLALAB 07:35
PROVIDERS: ATTEND Family Medicine
DX: Z13.29 Encounter for screening for other suspected endocrine disorder (principal); Z13.0 Encounter for screening for diseases of the blood and blood-forming organs and certain disorders involving the immune mechanism; Z13.220 Encounter for screening for lipoid disorders

== ENCOUNTER → 2025-03-03 | Outpatient (REF) | payer OTHER, MEDICARE ==
[2025-03-05 14:37] LABS: HPV APTIMA Not Detected (Not Detected)
== END ==
LOC: M SFHCWAGY 10:21
PROVIDERS: ATTEND Obstetrics & Gynecology
DX: Z01.419 Encounter for gynecological examination (general) (routine) without abnormal findings (principal); Z77.9 Other contact with and (suspected) exposures hazardous to health
CPT/HCPCS: 87624; G0123